=== PATIENT | male | born 1970 | race Native Hawaiian/Other Pacific Islander ===

== ENCOUNTER 2020-04-15 12:49 | Emergency (ER) | payer BC, OTHER ==
[~2020-04-15] VITALS: Ht 177.8 cm; Wt 79.4 kg
[2020-04-15 12:58] VITALS: TEMP 99.7
[2020-04-15 15:12] VITALS: BP 152/88
== END 2020-04-15 15:10 | disposition home or self-care (01) ==
LOC: ED 12:49
DX: U07.1 COVID-19 (principal)
CPT/HCPCS: 87635; 99283; U0003

== ENCOUNTER 2020-04-20 16:49 | Emergency (ER) | payer BC, OTHER ==
[~2020-04-20] VITALS: Ht 177.8 cm; Wt 79.4 kg
[2020-04-20 19:50] VITALS: BP 104/71; TEMP 97.8
== END 2020-04-20 19:50 | disposition home or self-care (01) ==
LOC: ED 16:49
DX: U07.1 COVID-19 (principal); M94.0 Chondrocostal junction syndrome [Tietze]
CPT/HCPCS: 96372; 99283; J1885